=== PATIENT | female | born 1965 | race Caucasian/White ===

== ENCOUNTER 2019-04-21 17:46 | Emergency (ER) | payer MEDICAID ==
--- NOTE | 2019-04-21 18:12 | EDM.PDOC ---
ED HPI GENERAL MEDICAL PROBLEM - General Chief Complaint: Upper Extremity Injury/Pain Stated Complaint: SLIPPED ON ICE, HURT LEFT ARM Time Seen by Provider: 04/21/19 18:00 Source of Information: Reports: Patient, Old Records History Limitations: Reports: No Limitations - History of Present Illness INITIAL COMMENTS - FREE TEXT/NARRATIVE: 53 yo female fell on the ice about 2 hrs before arrival injuring her L wrist. No tx prior to arrival. No other injuries. 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) Left Wrist Pain Score (Numeric/FACES): 10 - Related Data Allergies Allergy/AdvReac Type Severity Reaction Status Date / Time Mbmrtfo-Mod-Ver Reductase Allergy Liver Verified 04/21/19 18:03 Inhibitor Problems Home Meds: Home Meds Cholecalciferol (Vitamin D3) [Vitamin D3] 3,000 tab PO DAILY 12/30/18 [History] Flunisolide [Nasalide Nasal [place]] 2 spray TOP DAILY 12/30/18 [History] Gabapentin [Neurontin] 3 tab PO TID 12/30/18 [History] Glimepiride [Amaryl] 4 tab PO DAILY 12/30/18 [History] Insulin Detemir [Levemir Flextouch] 50 units SQ BEDTIME 12/30/18 [History] Ipratropium [Atrovent 0.06% Nasal [place]] 2 spray TOP TID 12/30/18 [History] Levothyroxine 1 tab PO DAILY 12/30/18 [History] Liraglutide [Victoza] 1.8 unit SQ BEDTIME 12/30/18 [History] Lurasidone HCl [Latuda] 1 tab PO DAILY 12/30/18 [History] Ondansetron [Zofran Odt] 1 tab PO Q6H PRN 12/30/18 [History] Oxybutynin Chloride [Oxybutynin Chloride ER] 1 tab PO DAILY 12/30/18 [History] Prazosin HCl [Prazosin] 1 tab PO DAILY 12/30/18 [History] Ramelteon [Rozerem] 1 tab PO BEDTIME 12/30/18 [History] Simvastatin 1 tab PO DAILY 12/30/18 [History] Venlafaxine HCl [Venlafaxine ER] 1 tab PO DAILY 12/30/18 [History] busPIRone HCl [busPIRone] 1 tab PO BID 12/30/18 [History] hydrOXYzine pamoate [Hydroxyzine Pamoate] 2 tab PO BEDTIME 12/30/18 [History] metFORMIN HCl [Metformin HCl] 1 tab PO BID 12/30/18 [History] oxyCODONE HCl/Acetaminophen [Endocet 7.5-325 mg Tablet] 1 - 2 tab PO Q4H PRN [History] rOPINIRole [Requip] 1 tab PO DAILY 12/30/18 [History] Past Medical History Endocrine/Metabolic History: Reports: Diabetes, Type II, Hypoparathyroidism - Past Surgical History GI Surgical History: Reports: Hernia Repair/Other Musculoskeletal Surgical History: Reports: Arthroscopic Knee, Shoulder Surgery Review of Systems - Review of Systems Review Of Systems: Comprehensive ROS is negative, except as noted in HPI. Constitutional: Reports: No Symptoms Musculoskeletal: Reports: Joint Pain (L wrist) Skin: Reports: No Symptoms Neurological: Reports: No Symptoms ED EXAM, GENERAL - Physical Exam Exam: See Below Exam Limited By: No Limitations General Appearance: Alert, WD/WN, No Apparent Distress Extremities: No Pedal Edema, Limited Range of Motion (L wrist), Other (distal radial tenderness). No: Normal Inspection, Normal Range of Motion, Non-Tender, Pedal Edema, Increased Warmth Neurological: Alert, Oriented, CN II-XII Intact, Normal Cognition, No Motor/ Sensory Deficits Psychiatric: Normal Affect, Normal Mood Skin Exam: Warm, Dry, Intact, Normal Color Course - Vital Signs Text/Narrative:: Sugar Tong splint, 4 inch wide orthoglass splint applied with a 2 inch and a 4 inch Pascual wraps. Sling provided. Last Recorded V/S: Last Vital Signs Temp 36.9 C 04/21/19 18:21 Pulse 95 04/21/19 18:21 Resp 22 H 04/21/19 18:21 BP 119/78 04/21/19 18:21 Pulse Ox 91 L 04/21/19 18:21 - Radiology Interpretation Free Text/Narrative:: L wrist M-[id number]-[id number] distal radial fx Departure - Departure Time of Disposition: 19:15 Disposition: Home, Self-Care 01 Condition: Fair Clinical Impression: Distal radius fracture, left Qualifiers: Encounter type: initial encounter Fracture type: closed Fracture morphology: unspecified fracture morphology Qualified Code(s): S52.502A - Unspecified fracture of the lower end of left radius, initial encounter for closed fracture - Discharge Information *PRESCRIPTION DRUG MONITORING PROGRAM REVIEWED*: No *COPY OF PRESCRIPTION DRUG MONITORING REPORT IN PATIENT STEPHIE: No Instructions: Wrist Fracture Treated With Immobilization Referrals: Keith Rosario MD [Primary Care Provider] - Forms: ED Department Discharge Additional Instructions: Take ibuprofen and/or acetaminophen as needed for pain relief. Wear the splint at all times. F/U with orthopedics for casting. Sepsis Event Note - Focused Exam Vital Signs: Vital Signs Temp Pulse Resp BP Pulse Ox 04/21/19 18:21 36.9 C 95 22 H 119/78 91 L 04/21/19 17:59 36.9 C 95 22 H 119/78 91 L Date Exam was Performed: 04/21/19 Time Exam was Performed: 19:08
--- NOTE | 2019-04-21 19:03 | CRLCR ---
Indication: Fell on ice 2 hours ago. Technique: Three views of the left wrist. Comparison: None Findings: A transverse fracture of the distal radius is identified. There is very minimal displacement. Mild degenerative changes of the wrist are identified. No other fractures are identified. Impression: Distal radial fracture. Dictated by Sharlene Carlson MD @ Apr 21 2019 7:02PM Signed by Dr. Sharlene Carlson @ Apr 21 2019 7:02PM
== END 2019-04-21 19:23 | disposition home or self-care (01) ==
LOC: JP.ED 17:46
DX: S52.502A Unspecified fracture of the lower end of left radius, initial encounter for closed fracture (principal); E11.9 Type 2 diabetes mellitus without complications; E20.9 Hypoparathyroidism, unspecified; Z88.8 Allergy status to other drugs, medicaments and biological substances; Z79.4 Long term (current) use of insulin; Z79.899 Other long term (current) drug therapy; W00.0XXA Fall on same level due to ice and snow, initial encounter
CPT/HCPCS: 29125; 73110-LT; 99283-25

== ENCOUNTER 2020-05-21 11:04 | Emergency (ER) | payer MEDICAID ==
[2020-05-21] MEDS ORDERED: SUMAtriptan 6 MG/0.5 ML SDV SUBCUT ONE (11:39)
[2020-05-21] MEDS ORDERED: Ketorolac 30 MG/ML SDV IVPUSH ONE (11:40)
[2020-05-21] MEDS ORDERED: Lactated Ringers 1,000 ML IV ONE (11:40)
[2020-05-21] MEDS ORDERED: Prochlorperazine 10 MG/2 ML SDV IVPUSH ONE (11:41)
[2020-05-21] MEDS ORDERED: diphenhydrAMINE 50 MG/ML SDV IVPUSH ONE (11:41)
--- NOTE | 2020-05-21 11:47 | EDM.PDOC ---
ED HPI GENERAL MEDICAL PROBLEM - General Chief Complaint: Headache Stated Complaint: MIGRAINE SINCE SUNDAY Time Seen by Provider: 05/21/20 11:35 Source of Information: Reports: Patient, Old Records, RN History Limitations: Reports: No Limitations - History of Present Illness INITIAL COMMENTS - FREE TEXT/NARRATIVE: 54 yo female presents with a migraine for a few days. Was brought in by her daughter. Used her Imitrex yesterday without relief. No self tx today. VIDES is typical of migraines she has had before. Onset: Sudden Onset Date: 05/18/20 Duration: Day(s):, Constant Location: Reports: Head Quality: Reports: Ache Severity: Severe Improves with: Reports: None Worsens with: Reports: Other (unknown trigger) Context: Reports: Other (See HPI) Associated Symptoms: Reports: Headaches, Nausea/Vomiting (no vomiting). 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) Headache Pain Score (Numeric/FACES): 10 - Related Data Allergies Allergy/AdvReac Type Severity Reaction Status Date / Time Fxaslwo-Ena-Jrf Reductase Allergy Liver Verified 05/21/20 11:24 Inhibitor Problems Home Meds: Home Meds Cholecalciferol (Vitamin D3) [Vitamin D3] 3,000 tab PO DAILY 12/30/18 [History] Flunisolide [Nasalide Nasal [place]] 2 spray TOP DAILY 12/30/18 [History] Gabapentin [Neurontin] 3 tab PO TID 12/30/18 [History] Glimepiride [Amaryl] 2 mg PO DAILY 12/30/18 [History] Insulin Detemir [Levemir Flextouch] 48 units SQ BEDTIME 12/30/18 [History] Ipratropium [Atrovent 0.06% Nasal [place]] 2 spray TOP TID 12/30/18 [History] Levothyroxine 1 tab PO DAILY 12/30/18 [History] Liraglutide [Victoza] 1.8 unit SQ BEDTIME 12/30/18 [History] Lurasidone [Latuda] 1 tab PO DAILY 12/30/18 [History] Ondansetron [Zofran Odt] 1 tab PO Q6H PRN 12/30/18 [History] Oxybutynin Chloride [Oxybutynin Chloride ER] 1 tab PO DAILY 12/30/18 [History] Prazosin HCl [Prazosin] 3 tab PO DAILY 12/30/18 [History] Ramelteon [Rozerem] 1 tab PO BEDTIME 12/30/18 [History] Simvastatin 1 tab PO DAILY 12/30/18 [History] Venlafaxine HCl [Venlafaxine ER] 75 mg PO BEDTIME 12/30/18 [History] busPIRone HCl [busPIRone] 1 tab PO BID 12/30/18 [History] hydrOXYzine pamoate [Hydroxyzine Pamoate] 2 tab PO BEDTIME 12/30/18 [History] metFORMIN HCl [Metformin HCl] 1 tab PO BID 12/30/18 [History] oxyCODONE HCl/Acetaminophen [Endocet 7.5-325 mg Tablet] 1 - 2 tab PO Q4H PRN 12/30/18 [History] rOPINIRole [Requip] 2 tab PO DAILY 12/30/18 [History] Biotin/Keratin [Biotin Plus Keratin Tablet] 500 mg PO DAILY 05/08/19 [History] Calcium Carbonate [Calcium] 600 mg PO DAILY 05/08/19 [History] Cinnamon Bark/Chromium Picolin [Cinnamon Plus Chromium Capsule] 1,200 mg PO DAILY 05/08/19 [History] Ferrous Fumarate/Vitamin C [Vitron-C] 1 tab PO DAILY 05/08/19 [History] Fish Oil/Borage/Flax/Om3,6,9 1 [[place] 3-6-9 1,200 mg Softgel] 1,200 mg PO DAILY 05/08/19 [History] Angela Root 550 mg PO DAILY 05/08/19 [History] Meclizine [Antivert] 25 mg PO TID PRN 05/08/19 [History] SUMAtriptan [Imitrex] 50 mg PO DAILY PRN 05/08/19 [History] Turmeric/Turmeric Root Extract [Turmeric 500 mg Capsule] 500 mg PO DAILY 05/08/19 [History] Venlafaxine HCl [Venlafaxine ER] 150 mg PO BEDTIME 05/08/19 [History] buPROPion [buPROPion XL] 150 mg PO BID 05/08/19 [History] Past Medical History HEENT History: Reports: Impaired Vision Cardiovascular History: Reports: High Cholesterol Respiratory History: Reports: None Gastrointestinal History: Reports: None Genitourinary History: Reports: Other (See Below) Other Genitourinary History: overactive bladder SHOE FITTER History: Reports: , Spontaneous Musculoskeletal History: Reports: Back Pain, Chronic, Fracture, Other (See Below) Other Musculoskeletal History: left wrist FX DOI 04/21/19 Neurological History: Reports: Migraines Psychiatric History: Reports: None Endocrine/Metabolic History: Reports: Diabetes, Type II, Hypoparathyroidism Hematologic History: Reports: None Immunologic History: Reports: None Oncologic (Cancer) History: Reports: None Dermatologic History: Reports: None - Infectious Disease History Infectious Disease History: Reports: Chicken Pox - Past Surgical History Head Surgeries/Procedures: Reports: None GI Surgical History: Reports: Hernia Repair/Other Musculoskeletal Surgical History: Reports: Arthroscopic Knee, Shoulder Surgery Social & Family History - Tobacco Use Tobacco Use Status *Q: Never Tobacco User - Caffeine Use Caffeine Use: Reports: Soda - Recreational Drug Use Recreational Drug Use: No ED ROS GENERAL - Review of Systems Review Of Systems: See Below Constitutional: Reports: No Symptoms. Denies: Fever, Chills HEENT: Reports: No Symptoms Respiratory: Reports: No Symptoms Cardiovascular: Reports: No Symptoms GI/Abdominal: Reports: Nausea. Denies: Vomiting : Reports: No Symptoms Musculoskeletal: Reports: No Symptoms Skin: Reports: No Symptoms Neurological: Reports: Headache. Denies: Confusion, Numbness, Trouble Speaking, Difficulty Walking Psychiatric: Reports: No Symptoms - Physical Exam Exam: See Below Exam Limited By: No Limitations General Appearance: Alert, WD/WN, Mild Distress Eye Exam: Bilateral Eye: Other (photophobia) Ears: Normal External Exam, Normal Canal, Hearing Grossly Normal, Normal TMs Nose: Normal Inspection, No Blood Throat/Mouth: Normal Inspection, Normal Lips, Normal Oropharynx, Normal Voice, No Airway Compromise Head Exam: Atraumatic, Normocephalic Neck: Normal Inspection Respiratory/Chest: No Respiratory Distress, Lungs Clear, Normal Breath Sounds, No Accessory Muscle Use Cardiovascular: Regular Rate, Rhythm, No Edema GI/Abdominal: Normal Bowel Sounds, Soft, Non-Tender, No Distention Neuro Exam (Abbreviated): Alert, Oriented, CN II-XII Intact, Normal Cognition, No Motor/Sensory Deficits Back Exam: Normal Inspection. No: CVA Tenderness (R), CVA Tenderness (L) Extremities: Normal Inspection, Normal Range of Motion, Non-Tender, No Pedal Edema. No: Pedal Edema Psychiatric: Normal Affect, Normal Mood Skin Exam: Warm, Dry, Intact, Normal Color, No Rash Course - Vital Signs Last Recorded V/S: Last Vital Signs Temp 36.2 C 05/21/20 11:23 Pulse 99 05/21/20 11:23 Resp 16 05/21/20 11:23 BP 131/94 H 05/21/20 11:23 Pulse Ox 94 L 05/21/20 11:23 - Orders/Labs/Meds Meds: Medications Discontinued Medications Generic Name Dose Route Start Last Admin Trade Name Jaronq PRN Reason Stop Dose Admin Diphenhydramine HCl 25 mg 05/21/20 11:41 05/21/20 12:29 Benadryl IVPUSH 05/21/20 11:42 25 mg ONETIME ONE Administration Lactated Ringer's 1,000 mls @ 999 mls/hr 05/21/20 11:40 05/21/20 12:14 Ringers, Lactated IV 05/21/20 12:40 999 mls/hr BOLUS ONE Administration Ketorolac Tromethamine 30 mg 05/21/20 11:40 05/21/20 12:18 Toradol IVPUSH 05/21/20 11:41 30 mg ONETIME ONE Administration Prochlorperazine Edisylate 10 mg 05/21/20 11:41 05/21/20 12:24 Compazine IVPUSH 05/21/20 11:42 10 mg ONETIME ONE Administration Sumatriptan Succinate 6 mg 05/21/20 11:39 Imitrex SUBCUT 05/21/20 11:40 ONETIME ONE - Re-Assessments/Exams Free Text/Narrative Re-Assessment/Exam: 05/21/20 13:19 After treatment VIDES is significantly improved, but not resolved. Wants to go home. Departure - Departure Time of Disposition: 13:20 Disposition: Home, Self-Care 01 Condition: Fair Clinical Impression: Migraine Qualifiers: Migraine type: without aura Status migrainosus presence: with status migrainosus Intractability: not intractable Qualified Code(s): G43.001 - Migraine without aura, not intractable, with status migrainosus - Discharge Information *PRESCRIPTION DRUG MONITORING PROGRAM REVIEWED*: Not Applicable *COPY OF PRESCRIPTION DRUG MONITORING REPORT IN PATIENT STEPHIE: Not Applicable Instructions: Recurrent Migraine Headache, [id number] Referrals: Keith Rosario MD [Primary Care Provider] - Forms: ED Department Discharge Additional Instructions: Home to sleep. No driving today. See your doctor as needed. Continue your usual medications. Try Excedrin Migraine at the first sign of a migraine. Sepsis Event Note (ED) - Evaluation Sepsis Screening Result: No Definite Risk - Focused Exam Vital Signs: Vital Signs Temp Pulse Resp BP Pulse Ox 05/21/20 11:23 36.2 C 99 16 131/94 H 94 L 05/21/20 11:19 36.2 C 99 16 131/94 H 94 L
== END 2020-05-21 13:46 | disposition home or self-care (01) ==
LOC: JP.ED 11:04
DX: G43.001 Migraine without aura, not intractable, with status migrainosus (principal); E11.9 Type 2 diabetes mellitus without complications; Z88.8 Allergy status to other drugs, medicaments and biological substances; E78.00 Pure hypercholesterolemia, unspecified; Z79.4 Long term (current) use of insulin; Z79.899 Other long term (current) drug therapy
CPT/HCPCS: 96374; 96375; 99283; J0780; J1200; J1885; J7120; 99284

== ENCOUNTER 2022-11-16 09:51 | Emergency (ER) | payer MEDICAID ==
[2022-11-16] MEDS ORDERED: Acetaminophen 500 MG Tab PO ONE (11:22)
[2022-11-16] MEDS ORDERED: Ondansetron 4 MG Tab.DIS PO ONE (11:22)
[2022-11-16 12:05] LABS: A/G RATIO 1.2 (1.2-2.2); ALANINE AMINOTRANSFERASE,ALT 29 U/L (12-78); ALBUMIN 3.9 g/dL (3.4-5.0); ALKALINE PHOSPHATASE 78 U/L (46-116); ASPARTATE AMNIOTRANSFERASE,AST 19 U/L (15-37); BILIRUBIN TOTAL 0.4 mg/dL (0.2-1.0); BLOOD UREA NITROGEN,BUN 19 mg/dL (7-18); CALCIUM 9.7 mg/dL (8.5-10.1); CARBON DIOXIDE,CO2 26 mmol/L (21-32); CHLORIDE,CL 105 mmol/L (100-108); CREATININE 1.1 mg/dL (0.6-1.0); ESTIMATED GFR 59 mL/min (>60); GLUCOSE RANDOM 79 mg/dL (74-106); POTASSIUM,K 4.6 mmol/L (3.6-5.2); PROTEIN TOTAL,TP 7.2 g/dL (6.4-8.2); SODIUM,NA 139 mmol/L (140-148)
[2022-11-16 12:06] LABS: ANION GAP 12.6 mmol/L (5.0-14.0)
== END 2022-11-16 13:32 | disposition home or self-care (01) ==
LOC: JP.ED 09:51
DX: E86.0 Dehydration (principal); E11.9 Type 2 diabetes mellitus without complications; E78.00 Pure hypercholesterolemia, unspecified; E03.9 Hypothyroidism, unspecified; Z79.4 Long term (current) use of insulin; Z79.899 Other long term (current) drug therapy; Z88.8 Allergy status to other drugs, medicaments and biological substances
CPT/HCPCS: 36415; 80053; 80178; 99284; A9270; Q0162